=== PATIENT | female | born 1940 | race Caucasian/White ===

== ENCOUNTER → 2016-04-06 | Outpatient (CLI) | payer OTHER ==
--- NOTE | 2016-04-07 14:06 | DI ---
THYROID ULTRASOUND, 04/06/2016 11:32 AM Clinical History: Hyperthyroidism. Previous Exam: None. Scans are performed through both lobes of the thyroid gland in multiple projections with the high res olution linear array probe. Color Doppler ultrasound is also performed. Both lobes of the thyroid gland are of normal size. The right and left lobes measure 16 x 22 x 45 mm, and 13 x 14 x 38 mm, in the AP, transverse, and longitudinal dimensions, respectively. The ninth sma ll follicular cysts and small benign hyperplastic nodules are noted bilaterally in these range in siz e between 2-5 mm. No abnormal nodules are identified. There is no hypervascularity. Reading: There are benign findings in both lobes of the thyroid gland. No hypervascularity is identified.
== END ==
LOC: US 11:27
PROVIDERS: ATTEND Internal Medicine
DX: E05.90 Thyrotoxicosis, unspecified without thyrotoxic crisis or storm (principal)
CPT/HCPCS: 76536

== ENCOUNTER 2017-03-12 08:00 | Inpatient (IN) ==
[2017-04-02] MEDS ORDERED: ceFAZolin Inj 2gm (Premix) 2 GM/50 ML BAG IV ONE (06:00)
[2017-04-02] MEDS ORDERED: Ketorolac Inj 30 MG, Morphine Inj 5 MG, BUPivacaine Inj 0.25% PF 150 MG SPLASH ONE ×3 (06:00)
[2017-04-02] MEDS ORDERED: Tranexamic Acid 1,000 MG in Sodium Chloride 0.9% 100 ML IV SCH (06:00)
[2017-04-02] MEDS ORDERED: Lactated Ringers 1,000 ML PRIMARY IV SCH (06:00)
[2017-04-02] MEDS ORDERED: BUPivacaine Liposome/PF (Exparel) Inj 20ml vial INFIL ONE ×2 (06:00→07:04)
[2017-04-02] MEDS ORDERED: LIDOCAINE W/ SODIUM BICARB 0.5 ML SYR SUBD ONE ×2 (06:00→06:03)
[2017-04-02] MEDS ORDERED: DEXTROSE IV ONE (06:03)
[2017-04-02] MEDS ORDERED: CEFAZOLIN IV ONE (06:03)
[2017-04-02 06:54] LABS: Hematocrit [HCT] 39.4 % (37.0-47.0); Hemoglobin [HGB] 13.3 g/dL (12.0-16.0); MEAN CORPUSCULAR HEMOGLOBIN 31.7 PG (27-31); MEAN CORPUSCULAR HGB CONC 33.8 g/dL (33-37); MEAN CORPUSCULAR VOLUME 93.8 FL (81-99); RED BLOOD COUNT 4.2 10^6/uL (4.20-5.40)
[2017-04-02] MEDS ORDERED: NORMAL SALINE 10 ML IVP ONE (07:01)
[2017-04-02] MEDS ORDERED: Sodium Chloride 0.9% 500 ML PRIMARY IV ONE (07:01)
[2017-04-02] MEDS ORDERED: BUPIVACAINE 0.5% W/EPI MPF -30 ML VIAL IV ONE (07:04)
[2017-04-02] MEDS ORDERED: Lactated Ringers 1,000 ML PRIMARY IV ONE ×2 (07:04→11:17)
[2017-04-02] MEDS ORDERED: DEXAMETHASONE PF 10 MG/1 ML VIAL IVP ONE (07:04)
[2017-04-02] MEDS ORDERED: BACITRACIN 50,000 UNIT VIAL IRRIG ONE (07:04)
[2017-04-02] MEDS ORDERED: Mepivacaine Inj 1.5% 450 MG/30 ML VIAL EPIDURAL ONE (07:05)
[2017-04-02] MEDS ORDERED: MIDAZOLAM 5 MG/1 ML IVP ONE (07:05)
[2017-04-02 07:09] LABS: BLOOD UREA NITROGEN 24 mg/dL (7-22); SERUM ALBUMIN 4.1 g/dL (3.5-4.8)
[2017-04-02 07:23] LABS: BILIRUBIN,URINE NEGATIVE (NEG); CLARITY,URINE CLEAR (CLEAR); COLOR,URINE YELLOW (Y); GLUCOSE, URINE (UA) NEGATIVE (NEG); OCCULT BLOOD,URINE NEGATIVE (NEG); PH,URINE 5.5 (5.0-8.5); PROTEIN,URINE NEGATIVE (NEG); UROBILINOGEN,URINE 0.2 EU/dL (0.2)
[2017-04-02 07:25] LABS: URINE SAMPLE TYPE CLEAN CATCH URINE
[2017-04-02] MEDS ORDERED: ROCURONIUM 10 MG/1 ML - 5 ML VIAL IVP ONE (07:28)
--- NOTE | 2017-04-02 07:56 | CRNA.PROCE ---
Nerve Block Documentation - - Safety Measures: Time Out Taken, Site Verified - - Type of Nerve Block Used: Right Femoral Nerve Block (Analgesic block for TKA Right) Position for Nerve Block: Supine Moniters Used During Block: EKG, SPO2, NIBP Oxygen Supplemented: Yes Sedation Used - Enter Amount in Comment Field [ANES.SEDAT]: Midazolam (mg): Yes (Total of 4), Fentanyl (mcg): Yes (50 mcgs) Skin Prep Used: ChloroPrep (Twice) Draped: No Technique: Nerve Stimulator Nerve Block Needle Used: CartCrunch 50 mm Stimulation Hz: 2 Stimulation Staring mA: 1.8 Stimulation Ending mA: 0.48 Local Anesthetic - Enter Amt in Comment Field [ANES.LOCNB]: 0.5 % Bupivicaine with Epinephrine 1:200,000 (mL): Yes (10 ml), Other Anesthetic: Yes (1.5% Mepivicaine 10 ml) Additives to Nerve Blocks: Dexamethasone (mg): Yes (5 ) - - PreOp Block : Time In: 07:40 PreOp Block : Time Out: 07:53 Anesthesia Time - Other Weight: 87.543 kg Height: 5 ft 5 in Body Mass Index (BMI): 32.1
[2017-04-02] MEDS ORDERED: PROPOFOL 10 MG/1 ML (200 MG/20 ML) VIAL IV ONE (08:09)
[2017-04-02] MEDS ORDERED: ePHEDrine Inj 50 MG/ML AMP IVP ONE (08:19)
[2017-04-02] MEDS ORDERED: TRANEXAMIC ACID 1,000 MG / 10 ML VIAL IRRIG ONE (08:23)
[2017-04-02] MEDS ORDERED: Hetastarch 6% + NS 500 ML IV ONE (08:24)
[2017-04-02] MEDS ORDERED: HYDROmorphone 2 MG/1 ML IVP ONE (08:56)
[2017-04-02] MEDS ORDERED: KETAMINE 100 MG/1 ML - 5 ML IV ONE (08:56)
[2017-04-02] MEDS ORDERED: fentaNYL Inj 100 MCG/2 ML VIAL IVP ONE (08:59)
--- NOTE | 2017-04-02 09:31 | CRNA.PROCE ---
Nerve Block Documentation - - Type of Nerve Block Used: Right Sciatic Nerve Block (Analgesic block for post TKA Right.) Position for Nerve Block: Lateral Moniters Used During Block: EKG, SPO2, NIBP Oxygen Supplemented: Yes Sedation Used - Enter Amount in Comment Field [ANES.SEDAT]: Midazolam (mg): Yes (4 mg), Fentanyl (mcg): Yes (50 mcgs) Skin Prep Used: ChloroPrep (Twice) Draped: No Technique: Nerve Stimulator Nerve Block Needle Used: 100 mm ProBlk II Stimulation Hz: 2 Stimulation Staring mA: 1.8 Stimulation Ending mA: 0.48 Local Anesthetic - Enter Amt in Comment Field [ANES.LOCNB]: 0.5 % Bupivicaine with Epinephrine 1:200,000 (mL): Yes (10ml), Other Anesthetic: Yes (1.5% 10 ml) Additives to Nerve Blocks: Dexamethasone (mg): Yes (5 mg) - - PreOp Block : Time In: 07:39 PreOp Block : Time Out: 07:53 Anesthesia Time - Block Time PreOp Block : Time In: 07:40 PreOp Block : Time Out: 07:53 - Other Weight: 87.543 kg Height: 5 ft 5 in Body Mass Index (BMI): 32.1
--- NOTE | 2017-04-02 09:36 | CRNA.PROGR ---
Anesthesia Recovery Phase I - Post Anesthesia Evaluation Patient's Condition on Arrival in Phase I: Stable Patient's Condition on Arrival in Phase II: Stable Pain Level: 1
--- NOTE | 2017-04-02 09:36 | CRNA.PROGR ---
Anesthesia Time - - Start date: 04/02/17 End date: 04/02/17 - Procedure/Recovery Time Anesthesia : Time In: 07:59 Anesthesia : Time Out: 12:03 Anesthesia : Total Time: 244 - Block Time PreOp Block : Time In: 07:39 PreOp Block : Time Out: 07:53 PreOp Block : Total Time: 14 - Total Anesthesia Time Total Anesthesia Time (minutes): 258 - Other Weight: 87.543 kg Height: 5 ft 5 in Body Mass Index (BMI): 32.1 Physical Status: P3 (Age greater than 70, ASCVD,HTN,) Anesthesia Type: General Anesthesia : ET (Primary with pain blocks secondary) PostOp Pain Management: Femoral (Single Injection)
--- NOTE | 2017-04-02 09:37 | CRNA.PROGR ---
Post Anesthesia Phase II - Post Anesthesia Phase II Patient Stable and Discharged To: Med/Surg Care Assumed By Surgeon: Demetrius Adams MD Temperature: 97.3 F Pulse Rate: 64 Respiratory Rate: 10 Blood Pressure: 122/68 Pulse Ox: 94 Total Iman Score at Discharge: 9 Post Anesthesia Discharge Criteria Met: Yes
[2017-04-02] MEDS ORDERED: BISACODYL 10 MG SUPPOSITORY RECTAL PRN (13:02)
[2017-04-02] MEDS ORDERED: LIDOCAINE HCL 2 % 10 ML JELLY URO-JECT TOPICAL PRN (13:02)
[2017-04-02] MEDS ORDERED: LINACLOTIDE PO PRN (13:02)
[2017-04-02] MEDS ORDERED: ONDANSETRON 4 MG/2 ML VIAL IVP PRN (13:02)
[2017-04-02] MEDS ORDERED: ACETAMINOPHEN 325 MG TABLET PO PRN (13:02)
[2017-04-02] MEDS ORDERED: BISACODYL 5 MG TABLET PO PRN (13:02)
[2017-04-02] MEDS ORDERED: AMITRIPTYLINE 25 MG TABLET PO PRN (13:02)
[2017-04-02] MEDS ORDERED: MAG HYDROX/AL HYDROX/SIMETH 30 ML SUSP PO PRN (13:02)
[2017-04-02] MEDS ORDERED: Ondansetron ODT Tab 8 MG TAB PO PRN (13:02)
[2017-04-02] MEDS ORDERED: Prochlorperazine Tab 10 MG TAB PO PRN (13:02)
[2017-04-02] MEDS ORDERED: diphenhydrAMINE 25 MG CAPSULE PO PRN (13:02)
--- NOTE | 2017-04-02 14:38 | DI ---
XR KNEE 1 OR 2 VWS,04/02/2017 11:44 AM: Clinical History: Total knee arthroplasty. Previous Exam: January 07, 2017 Findings: AP and lateral views of the right knee are obtained, and demonstrate postsurgical changes consistent with a right total knee arthroplasty. There is some subcutaneous free air noted. Overlying skin nadira are seen. There is soft tissue swelling. Impression: Status post right total knee arthroplasty.
[2017-04-02] MEDS: Lactated Ringers 1,000 ML PRIMARY IV SCH (14:53)
--- NOTE | 2017-04-02 15:46 | ORTHO.OP ---
- - -: See Dictated Operative Report Procedure Codes - Lower Extremity/Knee Procedures Primary Lower Extremity Procedure Code: 31586 : TKA (hayden walker assisted)
--- NOTE | 2017-04-02 16:05 | ORTHO.PROG ---
Last Taken Vital Signs: Vital Signs - Last Taken Temperature 97 F 04/02/17 14:30 Pulse Rate 73 04/02/17 14:30 Respiratory Rate 16 04/02/17 14:30 Blood Pressure 112/56 04/02/17 14:30 Pulse Ox 92 04/02/17 15:00 Subjective: Patient has no pain with the current time sciatic and femoral nerve block working Objective: Patient with absent sensory and motor in the lower extremities. Her dressing is a place with no active drainage. She has a superficial suction dressing in place with no active issues. Laboratory Results 04/02/17 04/02/17 04/02/17 Range/Units 06:30 06:30 06:30 WBC 7.08 (4.8-10.8) 10^3/uL RBC 4.20 (4.20-5.40) 10^6/uL Hgb 13.3 (12.0-16.0) g/dL Hct 39.4 (37.0-47.0) % MCV 93.8 (81-99) FL MCH 31.7 H (27-31) PG MCHC 33.8 (33-37) g/dL RDW Std Deviation 44.5 (39-50) fL RDW Coeff of Ashli 13.3 (11.5-14.5) % Plt Count 272 (140-350) 10*3/uL MPV 10.0 (7.4-12.2) FL Sodium 141 (135-145) meq/L Potassium 4.4 (3.8-5.2) meq/L Chloride 111 (98-112) meq/L Carbon Dioxide 20 L (23-33) meq/L Anion Gap 10 (5-20) BUN 24 H (7-22) mg/dL Creatinine 0.8 (0.50-1.20) mg/dL Estimated GFR Cluster Bore Operator BUN/Creatinine Ratio 30.00 H (6-20) Glucose 102 (78-110) mg/dL Calculated Osmolality 295.0 H (267-292) mOsm/kg Calcium 9.4 (8.7-10.7) mg/dL Total Bilirubin 1.0 (0.3-1.2) mg/dL AST 46 H (8-39) IU/L ALT 41 (9-52) IU/L Alkaline Phosphatase 117 (38-126) IU/L Total Protein 7.5 (6.1-8.0) g/dL Albumin 4.1 (3.5-4.8) g/dL Globulin 3.4 (2.50-4.10) g/dL Albumin/Globulin Ratio 1.20 L (1.3-2.0) mg/g Ur Collection Type Urine Color (Y) Urine Clarity (CLEAR) Urine pH (5.0-8.5) Ur Specific [place] (1.005-1.030) Urine Protein (NEG) mg/dl Urine Glucose (UA) (NEG) mg/dL Urine Ketones (NEG) Urine Occult Blood (NEG) Urine Nitrate (NEG) Urine Bilirubin (NEG) Urine Urobilinogen (0.2) EU/dL Ur Leukocyte Esterase (NEG) Blood Type O NEGATIVE Antibody Screen Negative Crossmatch See Detail 04/02/17 Range/Units 07:15 WBC (4.8-10.8) 10^3/uL RBC (4.20-5.40) 10^6/uL Hgb (12.0-16.0) g/dL Hct (37.0-47.0) % MCV (81-99) FL MCH (27-31) PG MCHC (33-37) g/dL RDW Std Deviation (39-50) fL RDW Coeff of Ashli (11.5-14.5) % Plt Count (140-350) 10*3/uL MPV (7.4-12.2) FL Sodium (135-145) meq/L Potassium (3.8-5.2) meq/L Chloride (98-112) meq/L Carbon Dioxide (23-33) meq/L Anion Gap (5-20) BUN (7-22) mg/dL Creatinine (0.50-1.20) mg/dL Estimated GFR BUN/Creatinine Ratio (6-20) Glucose (78-110) mg/dL Calculated Osmolality (267-292) mOsm/kg Calcium (8.7-10.7) mg/dL Total Bilirubin (0.3-1.2) mg/dL AST (8-39) IU/L ALT (9-52) IU/L Alkaline Phosphatase (38-126) IU/L Total Protein (6.1-8.0) g/dL Albumin (3.5-4.8) g/dL Globulin (2.50-4.10) g/dL Albumin/Globulin Ratio (1.3-2.0) mg/g Ur Collection Type Clean catch urine Urine Color Yellow (Y) Urine Clarity Clear (CLEAR) Urine pH 5.5 (5.0-8.5) Ur Specific [place] 1.010 (1.005-1.030) Urine Protein Negative (NEG) mg/dl Urine Glucose (UA) Negative (NEG) mg/dL Urine Ketones Negative (NEG) Urine Occult Blood Negative (NEG) Urine Nitrate Negative (NEG) Urine Bilirubin Negative (NEG) Urine Urobilinogen 0.2 (0.2) EU/dL Ur Leukocyte Esterase Negative (NEG) Blood Type Antibody Screen Crossmatch Vital Signs (24 hrs) Temp Pulse Pulse Resp BP BP Pulse Ox 04/02/17 15:00 92 04/02/17 14:30 97 F 73 16 112/56 95 04/02/17 14:00 97 F 76 16 114/63 96 04/02/17 13:45 97 F 73 17 113/56 95 04/02/17 13:33 97.3 F 64 10 L 122/68 94 04/02/17 13:31 97.1 F 70 12 107/59 96 04/02/17 13:15 97.4 F 75 16 117/63 95 04/02/17 12:50 98.0 F 77 13 124/65 93 04/02/17 12:40 98.7 F 78 13 121/65 94 04/02/17 12:30 98.8 F 78 12 120/59 94 04/02/17 12:20 98.8 F 79 11 L 122/60 93 04/02/17 12:15 98.5 F 81 14 120/61 93 04/02/17 12:10 98.5 F 80 14 118/75 93 04/02/17 12:05 99.5 F 83 14 113/60 93 04/02/17 11:59 99.5 F 83 12 121/27 92 04/02/17 06:35 97.3 F 64 10 L 122/68 94 Assessment: Right total knee replacement doing well Plan: Begin physical therapy tomorrow. Deep vein thromboses protocol with Lovenox beginning tomorrow morning. Ice elevation. Any mobilization for the first 72 hours with a knee immobilizer and strict nonweightbearing.
[2017-04-02] MEDS: ceFAZolin Inj 2gm (Premix) 2 GM/50 ML BAG IV SCH (19:03)
[2017-04-02] MEDS: HYDROcodone-APAP 10 MG-325 MG TABLET PO PRN (19:03)
--- NOTE | 2017-04-02 20:32 | CONSULT ---
Consult Note - Consult Consult Date: 04/02/17 Reason for Consult: PostOp Consulation : Ortho Requesting Physician: Dr. Adams Primary Care Provider: Trent Collins MD HPI - History of Present Illness Date of Service: 04/02/17 Time of Service: 16:30 Chief Complaint: Right knee pain History of Present Illness: This is a very pleasant 76-year-old female with a history of chronic knee and lower extremity pain, prior neck surgery, chronic osteoarthritis, anxiety, hypercholesterolemia, and valvular insufficiency, who presented today for right total knee replacement done by Dr. Adams. See his surgical notes regarding that procedure. Perioperatively, the patient does not have any symptoms of chest pain, shortness breath, nausea or vomiting. We are being asked to help address issues of hypercholesterolemia, valvular insufficiency, and other medical issues during the patient's hospital stay. She states that these of been fairly well-controlled. Her James arthritis again was terminal disease post multiple therapies including narcotics, anti-inflammatories, and other modalities. Overall, they failed. The patient does not have any nausea or vomiting post surgery either. She is starting to get some feeling back to her right leg. Past Medical History Medical History: 1. Osteoarthritis. 2. Hypertension. 3. Valvular insufficiencies. 4. Hypercholesterolemia. 5. Chronic pain syndrome status post neck surgeries. 6. Essential tremor. Surgical History: cervical fusion C2-C7 , Status post total knee replacement, Status post rotator cuff repair, Status post hysterectomy, Status post cholecystectomy, Status post laser cataract surgery Pertinent Family History: Significant for coronary artery disease in her mother. Past Social History: Does not smoke or drink. . Overall had 7 children a couple of whom have some health issues. Tobacco Use: Never Smoker In the Past 12 Months, Have Used or Abuse Any of the Following Substance: None Alcohol Use: None Review of Systems - Respiratory Respiratory: REPORTS: Negative System Review - Cardiovascular Cardiovascular: REPORTS: Negative System Review - Gastrointestinal Gastrointestinal / Abdominal: REPORTS: Negative System Review - Musculoskeletal Musculoskeletal: REPORTS: See HPI - Neurological Neurologic: REPORTS: Negative System Review Medication / Allergies Home Medications: Home Medications Medication Instructions Recorded Confirmed Type Cyclobenzaprine HCl 1 tab PO TID PRN #270 tab 02/21/04/02/17 History Amitriptyline HCl 3 tab PO QHS PRN #270 tab 09/12/16 04/02/17 History Nabumetone 1 tab PO BID #270 tab 09/12/16 04/02/17 Rx Omeprazole 1 cap PO BID #180 cap 09/12/16 04/02/17 Rx Potassium Chloride 1 cap PO BID #180 cap 09/12/16 04/02/17 Rx Pravastatin Sodium [Pravachol] 1 tab PO QHS #90 tab 09/12/16 04/02/17 Rx Propranolol HCl 1 tab PO BID #180 tab 09/12/16 04/02/17 Rx Spironolactone 1 tab PO BID #180 tab 09/12/16 04/02/17 Rx Linaclotide [Linzess] 1 tab PO DAILY PRN #30 cap 10/16/16 04/02/17 History Oxybutynin Chloride [Oxybutynin 1 tab PO QHS #90 tab 10/16/16 04/02/17 Rx Chloride Er] sertraline 100 mg tablet 100 mg PO QDAY #90 tab 01/14/17 04/02/17 Rx hydrocodone 10 mg-acetaminophen 1 tab PO QID #120 tab 01/30/17 04/02/17 Rx 325 mg tablet Allergies/Adverse Reactions: Allergies 3 Allergy/AdvReac Type Severity Reaction Status Date / Time No Known Drug Allergies Allergy NOT Verified 04/02/17 18:27 APPLICABLE PAIN CONTRACT AdvReac Unknown NOT Uncoded 04/02/17 18:27 APPLICABLE Exam - Vitals Vital Signs: Vital Signs Temperature 98.6 F Temperature Source Temporal Artery Scan Pulse Rate [Pulse Oximeter] 72 Pulse Rate 64 Respiratory Rate 20 Blood Pressure [Left Arm] 116/74 Blood Pressure 122/68 Pulse Ox 95 Oxygen Flow Rate 1 Oxygen Delivery Method Nasal Cannula Height 5 ft 5 in Weight 193 lb - General General Appearance: No Acute Distress, Cooperative - Head Head Exam: Normal Inspection, Normocephalic, Atraumatic - ENT ENT Exam: POSITIVE: Mucous Membranes Moist - Respiratory Respiratory Exam: POSITIVE: Clear to Auscultation - Bilaterally, Breathing Non Labored - Cardiovascular Cardiovascular Exam: POSITIVE: RRR, No Murmur, No Clicks, No Gallops, No Rubs, No JVD - GI/Abdominal GI/Abdominal Exam: POSITIVE: Normal Bowel Sounds, Non Tender, Non Distended, Soft - Rectal Rectal Exam: POSITIVE: Deferred - External Exam: POSITIVE: Deferred Exam: POSITIVE: Deferred - Extremities Additional Extremities Exam Details: Right knee is dressed. PT just entered the room as I was examining the patient to place a knee immobilizer. - Neurological Neurological Exam: POSITIVE: Alert, Oriented x 3, No Facial Droop, Speech Intact / Clear - Psychiatric Psychiatric Exam: POSITIVE: Normal Affect, Normal Mood Results - Labs CBC and BMP: 04/02/17 06:30 04/02/17 06:30 - EKG Data -: EKG Interpreted by Me Rate: Normal EKG Shows Normal: Sinus Rhythm - Imaging Status: Report Reviewed by Me (Knee x-ray shows status post arthroplasty) Assessment and Plan - Patient Problems (1) Chronic osteoarthritis Current Visit: Yes Status: Chronic Onset Date: 05/23/11 Code(s): M19.90 - Unspecified osteoarthritis, unspecified site (2) Chronic low back pain Current Visit: Yes Status: Chronic Onset Date: 12/18/12 Code(s): M54.5 - Low back pain; G89.29 - Other chronic pain Qualifiers: Back pain laterality: unspecified (3) Status post total knee replacement Current Visit: Yes Status: Resolved Onset Date: 02/12/05 (4) Mitral and tricuspid insufficiency Current Visit: Yes Status: Chronic (5) Gastroesophageal reflux disease Current Visit: Yes Status: Chronic Onset Date: 04/01/03 Qualifiers: Esophagitis presence: esophagitis presence not specified Qualified Code(s) : K21.9 - Gastro-esophageal reflux disease without esophagitis (6) Hyperlipidemia Current Visit: Yes Status: Chronic Qualifiers: Hyperlipidemia type: unspecified Qualified Code(s): E78.5 - Hyperlipidemia , unspecified (7) Benign familial tremor Current Visit: Yes Status: Chronic (8) Essential hypertension Current Visit: Yes Status: Chronic (9) Anxiety disorder Current Visit: Yes Status: Chronic Onset Date: 06/12/12 Code(s): F41.9 - Anxiety disorder, unspecified Qualifiers: Anxiety disorder type: unspecified anxiety disorder Qualified Code(s): F41.9 - Anxiety disorder, unspecified - Assessment / Plan Additional Assessment/Plan Details: Thus far, chronic medical issues seem stabilized, and I do not think we need to hold antihypertensives. Go ahead and resume those. Recommend 14 days total of DVT prophylaxis with knee replacement. I've noted that the patient will start Lovenox, prophylactic dose, tomorrow. Continue PT and OT. Pain control. The patient may very well need extended therapy be on the hospital stay. I recommend consideration for swing bed. Check labs in a.m. Thank you for this consult, will be the hospitalist service's pleasure to follow this patient's care during the hospital stay
[2017-04-02] MEDS: DOCUSATE 100 MG CAPSULE PO SCH (20:37)
[2017-04-02] MEDS: Spironolactone Tab 25 MG TAB PO SCH (20:38)
[2017-04-02] MEDS: Pravastatin 80mg Tab PO SCH (20:38)
[2017-04-02] MEDS: OMEPRAZOLE 20 MG CAPSULE PO SCH (20:38)
[2017-04-03] MEDS: CALCIUM CARBONATE 500 MG (TUMS) CHEWABLE TABLET PO PRN (00:03)
[2017-04-03] MEDS: HYDROcodone-APAP 10 MG-325 MG TABLET PO PRN ×5 (00:03→19:02)
[2017-04-03] MEDS: Lactated Ringers 1,000 ML PRIMARY IV SCH ×2 (01:13→12:30)
[2017-04-03] MEDS: ceFAZolin Inj 2gm (Premix) 2 GM/50 ML BAG IV SCH (03:34)
[2017-04-03 06:15] LABS: Hematocrit [HCT] 27.7 % (37.0-47.0); Hemoglobin [HGB] 9.1 g/dL (12.0-16.0); MEAN CORPUSCULAR HEMOGLOBIN 31.4 PG (27-31); MEAN CORPUSCULAR HGB CONC 32.9 g/dL (33-37); MEAN CORPUSCULAR VOLUME 95.5 FL (81-99); MEAN PLATELET VOLUME 10.6 FL (7.4-12.2); RED BLOOD COUNT 2.9 10^6/uL (4.20-5.40)
[2017-04-03 07:23] LABS: BLOOD UREA NITROGEN 17 mg/dL (7-22); BUN/CREATININE RATIO 28.33 (6-20)
[2017-04-03] MEDS: PROPRANOLOL ER 60 MG CAPSULE PO SCH ×2 (08:33→21:40)
[2017-04-03] MEDS: ENOXAPARIN SODIUM 30 MG/0.3 ML SYRINGE SUBCUT SCH ×2 (08:33→21:40)
[2017-04-03] MEDS: OMEPRAZOLE 20 MG CAPSULE PO SCH ×2 (08:33→21:40)
[2017-04-03] MEDS: Potassium Chloride Tab 10 MEQ TAB PO SCH (08:33)
[2017-04-03] MEDS: DOCUSATE 100 MG CAPSULE PO SCH ×2 (08:33→21:40)
[2017-04-03] MEDS: Spironolactone Tab 25 MG TAB PO SCH ×2 (08:33→21:40)
[2017-04-03] MEDS: Sertraline Tab 50 MG TAB PO SCH (08:33)
--- NOTE | 2017-04-03 09:30 | ORTHO.PROG ---
Last Taken Vital Signs: Vital Signs - Last Taken Temperature 98.2 F 04/03/17 08:22 Pulse Rate 80 04/03/17 08:22 Respiratory Rate 16 04/03/17 08:22 Blood Pressure 142/68 04/03/17 08:22 Pulse Ox 95 04/03/17 08:22 Subjective: Patient with block wearing off and some increasing pain, controlled with oral and IV medication Objective: Intake and Output (24hr x 4 totals) 04/01/17 04/02/17 04/03/17 04/04/17 05:59 05:59 05:59 05:59 Intake Total 5362 / 5362 240 / 240 Output Total 2250 / 2250 Balance 3112 / 3112 240 / 240 Laboratory Results 04/03/17 04/03/17 Range/Units 04:41 04:41 WBC 8.45 (4.8-10.8) 10^3/uL RBC 2.90 L (4.20-5.40) 10^6/uL Hgb 9.1 L (12.0-16.0) g/dL Hct 27.7 L (37.0-47.0) % MCV 95.5 (81-99) FL MCH 31.4 H (27-31) PG MCHC 32.9 L (33-37) g/dL RDW Std Deviation 44.5 (39-50) fL RDW Coeff of Ashli 13.3 (11.5-14.5) % Plt Count 243 (140-350) 10*3/uL MPV 10.6 (7.4-12.2) FL Sodium 135 D (135-145) meq/L Potassium 4.1 (3.8-5.2) meq/L Chloride 111 (98-112) meq/L Carbon Dioxide 23 (23-33) meq/L Anion Gap 1 L (5-20) BUN 17 (7-22) mg/dL Creatinine 0.6 (0.50-1.20) mg/dL Estimated GFR Wig Sales Consultant BUN/Creatinine Ratio 28.33 H (6-20) Glucose 97 (78-110) mg/dL Calculated Osmolality 281.0 (267-292) mOsm/kg Calcium 8.1 L (8.7-10.7) mg/dL Vital Signs (Last 8 hours) Temp Pulse Resp BP Pulse Ox 04/03/17 08:22 98.2 F 80 16 142/68 95 04/03/17 04:39 94 04/03/17 04:35 98.5 F 71 20 109/56 94 Sensory and motor Lower extremity still absent, dressing/PREVENA in place and dry no calf pain Assessment: Right Total knee replacement Plan: DVT prophalaxis enoxaprin PT/OT, NWB right with knee immobilzer because of block Pain control
--- NOTE | 2017-04-03 10:01 | PTI REPORT ---
Thank you for the referral of Dorie Huber. She was seen on for an inpatient evaluation status post right total knee arthroplasty. SUBJECTIVE: The patient is a 76-year-old female. The patient reports she is starting to get minimal feeling in that right lower extremity but at this point hasn't had any complaints of uncontrolled pain, lightheadedness, or nausea. PAST MEDICAL HISTORY: Past medical history can be found in the patient's medical record. OBJECTIVE FINDINGS: Pain: The patient reported a pain level at its worst of 7/10 on the verbal analog scale (0=no pain, 10=worst pain) with movement. Incision: Her incision and leg was unable to be inspected due to the post op bandage. Bed mobility: The patient required mod to max assist x1 for bed mobility, specifically for the right lower extremity. The patient is able to sit up edge of bed unsupported for greater than 5 minutes without difficulty. Strength: Range of motion and strength were not formally tested due to just having surgery earlier this morning. The patient demonstrated the ability for a minimal quad contraction but was unable to lift her leg up. Transfers: The patient is able to perform a sit to stand transfer with verbal cues for proper hand placement with walker, gait belt, and knee immobilizer, non weight-bearing on the right lower extremity per Dr. Adams's protocol. Ambulation: We attempted to perform ambulatory activities; however, the patient was unable to tolerate non weight-bearing on the right lower extremity due to her past medical history of a cervical spine fusion as well as significant arthritis in bilateral shoulders. ASSESSMENT: Problem List: Pain in the right knee Decreased passive and active range of motion in the right knee Decreased strength in the right knee Short-Term Goals: To be met by discharge from inpatient: Patient will be able to transfer from bed to stand independently. Patient will be able to ambulate 100 feet with walker, weight-bearing as tolerated. Patient will be able to ascend and descend five stairs with walker, weight- bearing as tolerated. Long-Term Goals: To be met following discharge from inpatient: Patient will be seen by outpatient physical therapy. TREATMENT PLAN: Patient will be seen B.I.D during the week and one time per day over the weekend as an inpatient for strengthening and range of motion activities, manual therapy, and pain relief modalities as needed. Per Dr. Adams's protocol, the patient is to maintain non weight-bearing in the knee immobilizer for 72-hours before progressing with weight-bearing and gait activities. INITIAL TREATMENT: Treatment today consisted of the initial evaluation followed by verbal education to the patient as well as the hospitalist on Dr. Adams's protocols for non weight-bearing on the right lower extremity. The patient was issued a standard walker as well as a knee immobilizer which was fit for extension. The patient performed bed mobility from supine to edge of bed with max assist x1, specifically for the right lower extremity. She was able to sit unsupported in the seated position for greater than five minutes without any complaints of nausea or lightheadedness. She was able to perform a sit to stand transfer with verbal cues for proper hand placement and non weight- bearing on the right lower extremity. We attempted to perform gait training; however, the patient was unable to do this due to her past medical history of her neck surgery and arthritis in her shoulders. CARMEL
[2017-04-03] MEDS: HYDROmorphone 2 MG/1 ML IVP PRN (14:51)
[2017-04-03] MEDS: NORMAL SALINE 10 ML SYRINGE FLUSH IVP PRN (14:53)
--- NOTE | 2017-04-03 15:13 | PDOC(PROG) ---
Date and Time of Service: 04/03/2017, 1510 Interval History: No complains of chest pain, shortness breath, nausea or vomiting. No abdominal pain. Eating well. Has been up with therapy. Might be interested in a swing bed. Objective : Data - Labs CBC and BMP: 04/03/17 04:41 04/03/17 04:41 Objective : Exam - General General Appearance: No Acute Distress, Cooperative Additional General Exam Details: Vital Signs (24 hrs) Temp Pulse Resp BP Pulse Ox 04/03/17 12:00 98.5 F 74 18 117/62 99 04/03/17 08:22 98.2 F 80 16 142/68 95 04/03/17 04:39 94 04/03/17 04:35 98.5 F 71 20 109/56 94 04/03/17 00:18 98.3 F 65 20 135/70 95 04/02/17 20:04 98.6 F 72 20 116/74 95 04/02/17 16:10 97.1 F 71 17 114/57 94 - Eye Eye Exam: No Scleral Icterus - ENT ENT Exam: Mucous Membranes Moist - Respiratory Respiratory Exam: Clear to Auscultation - Bilaterally, Breathing Non Labored - Cardiovascular Cardiovascular Exam: RRR, No Murmur, No Clicks, No Gallops, No Rubs, No JVD - GI/Abdominal GI/Abdominal Exam: Normal Bowel Sounds, Non Tender, Non Distended, Soft - Extremities Extremities Exam: No Clubbing Present, No Edema Present, No Cyanosis Present - Neurological Neurological Exam: Alert, Oriented x 3, No Facial Droop, Speech Intact / Clear Assessment and Plan - Patient Problems (1) Mitral and tricuspid insufficiency Current Visit: Yes Status: Chronic (2) Chronic osteoarthritis Current Visit: Yes Status: Chronic Onset Date: 05/23/11 Code(s): M19.90 - Unspecified osteoarthritis, unspecified site (3) Chronic low back pain Current Visit: Yes Status: Chronic Onset Date: 12/18/12 Code(s): M54.5 - Low back pain; G89.29 - Other chronic pain Qualifiers: Back pain laterality: unspecified Sciatica presence: without sciatica Qualified Code(s): M54.5 - Low back pain; G89.29 - Other chronic pain (4) Status post total knee replacement Current Visit: Yes Status: Resolved Onset Date: 02/12/05 (5) Gastroesophageal reflux disease Current Visit: Yes Status: Chronic Onset Date: 04/01/03 Qualifiers: Esophagitis presence: esophagitis presence not specified Qualified Code(s) : K21.9 - Gastro-esophageal reflux disease without esophagitis (6) Hyperlipidemia Current Visit: Yes Status: Chronic Qualifiers: Hyperlipidemia type: unspecified Qualified Code(s): E78.5 - Hyperlipidemia , unspecified (7) Benign familial tremor Current Visit: Yes Status: Chronic (8) Essential hypertension Current Visit: Yes Status: Chronic (9) Anxiety disorder Current Visit: Yes Status: Chronic Onset Date: 06/12/12 Code(s): F41.9 - Anxiety disorder, unspecified Qualifiers: Anxiety disorder type: unspecified anxiety disorder Qualified Code(s): F41.9 - Anxiety disorder, unspecified - Assessment / Plan Additional Assessment/Plan Details: Thus far getting up with PT and OT. Tremor has not been an issue. Valvular insufficiencies have been reasonable during the hospital stay and no sign of fluid overload. Continue DVT prophylaxis. Swing bed evaluation. No need for transfusion. No change to medications for medical issues.
--- NOTE | 2017-04-03 16:07 | PT.PROG ---
Progress Note Progress Note: S. Patient stated that she is starting to get feeling back in her knee, She reports she does not want to sit in her chair this morning. O. Patient transferred to the edge of the bed where she performed seated long arc quads, heel toe raises with left leg x 10, sit to stands x10, Patient transferred back to supine and performed heel slides, quad sets and ankle pumps all x 10. Patient was left in bed with alarm and call light. A. Patient tolerated exercises fair, she is very hesitant to put weight through her shoulders to keep non weight bearing status, she agreed to sit up this afternoon, She would continue to benefit from skilled therapy at this time. P. Continue POC.
--- NOTE | 2017-04-03 16:16 | PT.PROG ---
Progress Note Progress Note: S. Patient stated that she is feeling better and she wants to get out of bed. O. Patient transferred to the edge of bed, then ambulated 15 feet to the bathroom and 10 feet back to chair, where she was left with alarm and call light. A. Patient tolerated ambulation fair, she was able to ambulate with Mod assist, She would continue to benefit from skilled therapy at this time. P. Continue POC.
[2017-04-03] MEDS: CYCLOBENZAPRINE 10 MG TABLET PO PRN (19:03)
[2017-04-03] MEDS: Pravastatin 80mg Tab PO SCH (21:40)
[2017-04-03] MEDS: Oxybutynin ER Tab 5 MG TAB PO SCH (21:40)
[2017-04-04] MEDS: HYDROcodone-APAP 10 MG-325 MG TABLET PO PRN ×3 (00:30→16:50)
[2017-04-04] MEDS: HYDROmorphone 2 MG/1 ML IVP PRN ×2 (00:30→07:25)
[2017-04-04 05:10] LABS: Hematocrit [HCT] 29.3 % (37.0-47.0); Hemoglobin [HGB] 9.4 g/dL (12.0-16.0); MEAN CORPUSCULAR HEMOGLOBIN 31.1 PG (27-31); MEAN CORPUSCULAR HGB CONC 32.1 g/dL (33-37); MEAN PLATELET VOLUME 10.3 FL (7.4-12.2); RED BLOOD COUNT 3.02 10^6/uL (4.20-5.40)
[2017-04-04 05:17] LABS: BLOOD UREA NITROGEN 15 mg/dL (7-22); BUN/CREATININE RATIO 21.42 (6-20)
[2017-04-04] MEDS: NORMAL SALINE 10 ML SYRINGE FLUSH IVP PRN (07:26)
[2017-04-04] MEDS: Sertraline Tab 50 MG TAB PO SCH (08:37)
[2017-04-04] MEDS: DOCUSATE 100 MG CAPSULE PO SCH ×2 (08:38→21:06)
[2017-04-04] MEDS: PROPRANOLOL ER 60 MG CAPSULE PO SCH ×2 (08:38→21:07)
[2017-04-04] MEDS: OMEPRAZOLE 20 MG CAPSULE PO SCH ×2 (08:38→21:06)
[2017-04-04] MEDS: Potassium Chloride Tab 10 MEQ TAB PO SCH (08:38)
[2017-04-04] MEDS: ENOXAPARIN SODIUM 30 MG/0.3 ML SYRINGE SUBCUT SCH ×2 (08:38→21:06)
[2017-04-04] MEDS: Spironolactone Tab 25 MG TAB PO SCH ×2 (08:38→21:07)
--- NOTE | 2017-04-04 15:58 | ORTHO.PROG ---
Last Taken Vital Signs: Vital Signs - Last Taken Temperature 98.2 F 04/04/17 13:00 Pulse Rate 76 04/04/17 13:00 Respiratory Rate 20 04/04/17 13:00 Blood Pressure 141/60 04/04/17 13:00 Pulse Ox 94 04/04/17 13:00 Subjective: Patient having a very difficult morning because of lack of sleep and pain unable to participate in therapy but able to participate this afternoon. Overall she feels she is doing better and ready to continue to move forward with rehabilitation. Objective: Examination shows that the patient has a dressing in place she has good extension of the ankle and toes good flexion sensory exam is intact good pulses and brisk refill. Or thigh pain. Laboratory Results 04/04/17 04/04/17 Range/Units 04:38 04:38 WBC 8.99 (4.8-10.8) 10^3/uL RBC 3.02 L (4.20-5.40) 10^6/uL Hgb 9.4 L (12.0-16.0) g/dL Hct 29.3 L (37.0-47.0) % MCV 97.0 (81-99) FL MCH 31.1 H (27-31) PG MCHC 32.1 L (33-37) g/dL RDW Std Deviation 45.5 (39-50) fL RDW Coeff of Ashli 13.5 (11.5-14.5) % Plt Count 229 (140-350) 10*3/uL MPV 10.3 (7.4-12.2) FL Sodium 138 (135-145) meq/L Potassium 4.3 (3.8-5.2) meq/L Chloride 106 (98-112) meq/L Carbon Dioxide 24 (23-33) meq/L Anion Gap 8 (5-20) BUN 15 (7-22) mg/dL Creatinine 0.7 (0.50-1.20) mg/dL BUN/Creatinine Ratio 21.42 H (6-20) Glucose 105 (78-110) mg/dL Calculated Osmolality 286.0 (267-292) mOsm/kg Calcium 8.7 (8.7-10.7) mg/dL Vital Signs (24 hrs) Temp Pulse Resp BP Pulse Ox 04/04/17 13:00 98.2 F 76 20 141/60 94 04/04/17 08:41 97.6 F 86 20 128/59 92 04/04/17 04:29 98.6 F 75 21 125/60 92 04/04/17 04:22 92 04/04/17 00:09 98.6 F 71 18 122/59 97 04/03/17 19:47 98.0 F 68 16 127/57 94 04/03/17 19:00 68 16 04/03/17 16:51 98.6 F 68 16 124/60 95 Assessment: Right total knee replacement overall doing well Plan: At the current time patient to do doing much better we seemed to have reasonable pain control we will continue with trying to allow the patient to get more rest keeping her door shot and trying to alleviate unnecessary wakeup events. We will continue with deep vein thromboses protocol with pneumatic sequential devices and her Lovenox. We'll continue with physical therapy and occupational therapy.
--- NOTE | 2017-04-04 16:57 | PDOC(PROG) ---
Date and Time of Service: 04/04/2017, 1653 Interval History: Saw patient earlier today. Discussed with orthopedics. No complaints of chest pain, shortness breath, nausea or vomiting. Would like something for constipation. States that she has not been sleeping very well and she wanted to do some resting this afternoon before trying therapy again. Objective : Data - Labs CBC and BMP: 04/04/17 04:38 04/04/17 04:38 Objective : Exam - General General Appearance: No Acute Distress, Cooperative Additional General Exam Details: Vital Signs - Last Taken Temperature 97.8 F 04/04/17 16:31 Pulse Rate 71 04/04/17 16:31 Respiratory Rate 20 04/04/17 16:31 Blood Pressure 116/56 04/04/17 16:31 Pulse Ox 90 04/04/17 16:31 - Eye Eye Exam: No Scleral Icterus - ENT ENT Exam: Mucous Membranes Moist - Respiratory Respiratory Exam: Clear to Auscultation - Bilaterally, Breathing Non Labored - Cardiovascular Cardiovascular Exam: RRR, No Clicks, No Gallops, No Rubs, Systolic Murmur, No JVD - GI/Abdominal GI/Abdominal Exam: Normal Bowel Sounds, Non Tender, Non Distended, Soft - Extremities Extremities Exam: No Clubbing Present, No Edema Present, No Cyanosis Present Additional Extremities Exam Details: Lower extremity is dressed, dressing is clean, dry, intact. - Neurological Neurological Exam: Alert, Oriented x 3, No Facial Droop, Speech Intact / Clear Assessment and Plan - Patient Problems (1) Mitral and tricuspid insufficiency Current Visit: Yes Status: Chronic (2) Chronic osteoarthritis Current Visit: Yes Status: Chronic Onset Date: 05/23/11 Code(s): M19.90 - Unspecified osteoarthritis, unspecified site (3) Chronic low back pain Current Visit: Yes Status: Chronic Onset Date: 12/18/12 Code(s): M54.5 - Low back pain; G89.29 - Other chronic pain Qualifiers: Back pain laterality: unspecified Sciatica presence: without sciatica Qualified Code(s): M54.5 - Low back pain; G89.29 - Other chronic pain (4) Status post total knee replacement Current Visit: Yes Status: Resolved Onset Date: 02/12/05 (5) Gastroesophageal reflux disease Current Visit: Yes Status: Chronic Onset Date: 04/01/03 Qualifiers: Esophagitis presence: esophagitis presence not specified Qualified Code(s) : K21.9 - Gastro-esophageal reflux disease without esophagitis (6) Hyperlipidemia Current Visit: Yes Status: Chronic Qualifiers: Hyperlipidemia type: unspecified Qualified Code(s): E78.5 - Hyperlipidemia , unspecified (7) Benign familial tremor Current Visit: Yes Status: Chronic (8) Essential hypertension Current Visit: Yes Status: Chronic (9) Anxiety disorder Current Visit: Yes Status: Chronic Onset Date: 06/12/12 Code(s): F41.9 - Anxiety disorder, unspecified Qualifiers: Anxiety disorder type: unspecified anxiety disorder Qualified Code(s): F41.9 - Anxiety disorder, unspecified - Assessment / Plan Additional Assessment/Plan Details: Murmur is a little bit more prominent on exam today, but anemia is not so profound that the patient requires transfusion. No changes there. For insomnia issues she takes melatonin at home, I told her to bring in her own melatonin for home use. Trial Tylenol and Benadryl tonight to see if that helps with the patient's sleep. Right for medications for constipation. PT and OT. DVT prophylaxis.
[2017-04-04] MEDS ORDERED: BISACODYL 5 MG TABLET PO ONE (17:06)
--- NOTE | 2017-04-04 17:09 | PT.PROG ---
Progress Note Progress Note: S. Patient agreed to go to the therapy gym this afternoon, she reported that she had a bad morning and that was why she refused earlier. O. Patient ambulated 10 feet to the wheelchair and was wheeled to the therapy gym where she had heat and performed supine exercises in the form of; quad sets , ankle pumps, heel slides, short arc quads, straight leg raises (with assist), seated long arc quads all x 10, sit to stands x 5 then ambulated approximately 20 feet then was left with OT for further therapy. A. Patient tolerated therapy fair, she struggles with non weight bearing status , however is able to perform quad sets and short arc quads independently, she required min assist with straight leg raises and would continue to benefit from skilled therapy to increase strength and mobility. P. Continue POC.
[2017-04-04] MEDS ORDERED: diphenhydrAMINE 25 MG CAPSULE PO ONE (21:00)
[2017-04-04] MEDS ORDERED: ACETAMINOPHEN 325 MG TABLET PO SCH (21:00)
[2017-04-04] MEDS: Pravastatin 80mg Tab PO SCH (21:07)
[2017-04-04] MEDS: CYCLOBENZAPRINE 10 MG TABLET PO PRN (21:07)
[2017-04-04] MEDS: Oxybutynin ER Tab 5 MG TAB PO SCH (21:07)
[2017-04-05] MEDS: HYDROcodone-APAP 10 MG-325 MG TABLET PO PRN ×4 (04:03→19:10)
[2017-04-05 05:24] LABS: Hemoglobin [HGB] 9.8 g/dL (12.0-16.0); MEAN CORPUSCULAR HEMOGLOBIN 31.7 PG (27-31); MEAN CORPUSCULAR HGB CONC 32.7 g/dL (33-37); MEAN CORPUSCULAR VOLUME 97.1 FL (81-99); MEAN PLATELET VOLUME 10.5 FL (7.4-12.2); RED BLOOD COUNT 3.09 10^6/uL (4.20-5.40)
[2017-04-05 05:32] LABS: BLOOD UREA NITROGEN 14 mg/dL (7-22)
[2017-04-05] MEDS: Spironolactone Tab 25 MG TAB PO SCH ×2 (08:43→20:06)
[2017-04-05] MEDS: DOCUSATE 100 MG CAPSULE PO SCH ×2 (08:44→20:06)
[2017-04-05] MEDS: OMEPRAZOLE 20 MG CAPSULE PO SCH ×2 (08:44→20:06)
[2017-04-05] MEDS: Sertraline Tab 50 MG TAB PO SCH (08:44)
[2017-04-05] MEDS: Potassium Chloride Tab 10 MEQ TAB PO SCH (08:44)
[2017-04-05] MEDS: ENOXAPARIN SODIUM 30 MG/0.3 ML SYRINGE SUBCUT SCH ×2 (08:44→20:06)
[2017-04-05] MEDS: PROPRANOLOL ER 60 MG CAPSULE PO SCH ×2 (08:44→20:07)
--- NOTE | 2017-04-05 08:49 | ORTHO.PROG ---
Last Taken Vital Signs: Vital Signs - Last Taken Temperature 98.3 F 04/05/17 04:23 Pulse Rate 84 04/05/17 04:23 Respiratory Rate 20 04/05/17 04:23 Blood Pressure 129/57 04/05/17 04:23 Pulse Ox 96 04/05/17 04:23 Subjective: Patient doing relatively well notes that she feels like she is making progress. Objective: Immobilizer was removed she has good motor with extension of the leg near full extension can flex to about 50. Generally appears to have good ligamentous stability good motor and sensory of the lower extremity foot and ankle.PREVENA dressing is in place with no drainage. Laboratory Results 04/05/17 04/05/17 Range/Units 04:25 04:25 WBC 8.96 (4.8-10.8) 10^3/uL RBC 3.09 L (4.20-5.40) 10^6/uL Hgb 9.8 L (12.0-16.0) g/dL Hct 30.0 L (37.0-47.0) % MCV 97.1 (81-99) FL MCH 31.7 H (27-31) PG MCHC 32.7 L (33-37) g/dL RDW Std Deviation 44.9 (39-50) fL RDW Coeff of Ashli 13.3 (11.5-14.5) % Plt Count 231 (140-350) 10*3/uL MPV 10.5 (7.4-12.2) FL Sodium 137 (135-145) meq/L Potassium 4.0 (3.8-5.2) meq/L Chloride 103 (98-112) meq/L Carbon Dioxide 23 (23-33) meq/L Anion Gap 11 (5-20) BUN 14 (7-22) mg/dL Creatinine 0.7 (0.50-1.20) mg/dL BUN/Creatinine Ratio 20.00 (6-20) Glucose 95 (78-110) mg/dL Calculated Osmolality 284.0 (267-292) mOsm/kg Calcium 8.8 (8.7-10.7) mg/dL Vital Signs (24 hrs) Temp Pulse Resp BP Pulse Ox 04/05/17 04:23 98.3 F 84 20 129/57 96 04/05/17 04:02 96 04/05/17 01:00 98.7 F 93 20 137/77 91 04/04/17 20:23 98.5 F 70 20 123/54 91 04/04/17 16:31 97.8 F 71 20 116/56 90 04/04/17 13:00 98.2 F 76 20 141/60 94 Assessment: Right total knee replacement overall doing well making slow progress with physical therapy and occupational therapy Plan: Patient will continue with physical therapy and occupational therapy. I suspect she will need continued her rehabilitation possibly on swing bed if this is an available option. Continue with current pain control and DVT prophylaxis with Lovenox and pneumatic sequential devices.
--- NOTE | 2017-04-05 11:12 | OT.PROG ---
Progress Note Progress Note: Occupational Therapy: 30 min S: pt stated she was feeling okay and was willing to go to therapy. O: pt completed doffiing and donning of new gown with MIN A for set up. pt competed functional ambulation with FWW and CGA for safety from chair to w/c x10 '. pt completed functional transfer from w/c to toilet with CGA for safety with MIN A for balance and coordination. pt competed all ADL tasks associated with toileting Mary. pt completed 2# BUE exercises of biceps curls x10, chest press x10. pt completed YTB exercises of shoulder flexion x10, triceps extension x10, biceps curls x10, chest pulls x10. pt completed functional transfer from mat table to w/c with 2 person transfer and CGA for safety due to weakness from therapy session. pt completed functional transfer from w/c to bed with CGA for safety. pt needed MOD A to lift legs onto bed. A: pt need verbal encouragement before agreeing to therapy today. once pt was in therapy gym pt became and active participant in therapy sessions. P: continue POC
--- NOTE | 2017-04-05 11:34 | OTI REPORT ---
Thank you for the referral of Dorie Huber. She was seen on for an occupational therapy inpatient evaluation status post right total knee arthroplasty. SUBJECTIVE: The patient is a 76-year-old female who is being seen secondary to having a right total knee arthroplasty. Prior to admission the patient lived in her own home with her . She was independent with all activities of daily living and functional activities. The patient is still non weight-bearing with her knee immobilizer. The patient reports that she does have a higher toilet and a shower chair at home. PAST MEDICAL HISTORY: Past medical history can be found in the patient's medical record. OBJECTIVE FINDINGS: Transfers: The patient requires max assist with functional transfers. Activities of daily living: The patient was issued a travel registered nurse nicu, sock aide, bath sponge, and a long handled shoe horn for increased independence. She said she will need all of these for dressing activities as even prior to admission she had difficulty dressing herself. The patient and her were instructed to remove all throw rugs within their home. Bed mobility: The patient requires max assist for bed mobility. Pain: The patient has a lot of shoulder pain. Range of motion: The patient has upper extremity range of motion that is within functional limits. Strength: Upper extremity strength is 3+/5 for flexion, 4/5 for extension, 3+/5 for triceps, and 3+/5 for abduction. Elbow flexion/extension is 4/5 and wrist flexion/extension is 3+/5. ASSESSMENT: At this time the patient would benefit from skilled occupational therapy Problem List: Decreased ability to perform ADLs Patient will require education on use of adaptive equipment Decreased upper extremity strength Decreased ability to perform functional transfers Short-Term Goals: To be met by discharge from inpatient: Patient will be able to dress self independently with use of adaptive equipment. Patient will increase upper extremity strength to 4+/5 in order to use upper extremities for longer periods of time with her walker. Patient will be able to complete toilet transfer independently. Patient will be able to complete a shower independently. Long-Term Goals: To be met following discharge from inpatient: Patient will return home, demonstrating independence and safety with all ADLs and functional tasks. TREATMENT PLAN: Patient will be seen B.I.D during the week and one time per day over the weekend as an inpatient to address the above goals and objectives. INITIAL TREATMENT: Treatment today consisted of the initial evaluation followed by the patient transferring from supine to sit with max assist. The patient required max assist for dressing activities. The patient did not necessarily want to participate with therapy, but she did state she needed all of the adaptive equipment as she did have trouble dressing herself. The patient was placed back in bed with air pumps on calves. CARMEL
--- NOTE | 2017-04-05 12:02 | OT PM DAY ---
Diagnosis : Right Total Knee Arthroplasty PM - Occupational Therapy S: The patient reports she is willing to work on upper extremity strengthening exercises. She also states she needs to use the restroom. O: Treatment today consisted of therapeutic exercises including red theraband resisted horizontal abduction, biceps curls, internal/external rotation, triceps, shoulder extension, horizontal adduction, and shoulder adduction x10 repetitions each. The patient was able to complete a toilet transfer with max assist and verbal cues for turning. The patient required max assist for toilet hygiene. The patient demonstrated some bowel incontinence today and it was also observed that she had a slight blister wound on her left buttocks. The patient ambulated to the wheelchair with mod assist and verbal cues. The patient then transferred into bed with mod assist. OT spoke to the nurse about the patient's wound on her left buttocks and they did put some cream on it. The patient's knee immobilizer was removed and her compression stockings were placed on her calves. The patient was left in bed with call light in place. A: The patient tolerated today's treatment well. P: Continue seeing patient BID during the week and one time per day over the weekend for upper extremity strengthening, ADLs, and overall functional mobility. MTDD
--- NOTE | 2017-04-05 12:44 | PDOC(PROG) ---
Date and Time of Service: 04/05/2017 12:42 PM Interval History: Subjective Patient rating her knee pain about the 5 out of 10. No other symptoms. No chest pain, no shortness of breath. Objective : Data - Labs CBC and BMP: 04/05/17 04:25 04/05/17 04:25 Objective : Exam - General General Appearance: No Acute Distress, Cooperative - Head Head Exam: Normal Inspection, Atraumatic - Eye Eye Exam: Normal Appearance - ENT ENT Exam: Normal Exam - Neck Neck Exam: Normal Inspection - Respiratory Respiratory Exam: Clear to Auscultation - Bilaterally - Cardiovascular Cardiovascular Exam: RRR - GI/Abdominal GI/Abdominal Exam: Normal Bowel Sounds, Non Tender, Non Distended, Soft, No Organomegaly - Rectal Rectal Exam: Deferred - External Exam: Deferred - Extremities Additional Extremities Exam Details: No edema. Dressing applied to right knee. - Back Back Exam: Normal Inspection - Neurological Neurological Exam: Alert, Oriented x 3, CN II-XII Intact, Speech Intact / Clear , Moves All Extremities Equally - Psychiatric Psychiatric Exam: Normal Affect Assessment and Plan - Patient Problems (1) Essential hypertension Current Visit: Yes Status: Chronic Comment: Same medications. (2) Benign familial tremor Current Visit: Yes Status: Chronic Comment: She is on propranolol continue. (3) Hyperlipidemia Current Visit: Yes Status: Chronic Comment: Same medications Qualifiers: Hyperlipidemia type: unspecified Qualified Code(s): E78.5 - Hyperlipidemia , unspecified (4) Gastroesophageal reflux disease Current Visit: Yes Status: Chronic Onset Date: 04/01/03 Comment: Same med Qualifiers: Esophagitis presence: esophagitis presence not specified Qualified Code(s) : K21.9 - Gastro-esophageal reflux disease without esophagitis (5) Status post total knee replacement Current Visit: Yes Status: Resolved Onset Date: 02/12/05 Comment: Continue PT and OT. For DVT prophylaxis she is on Lovenox. (6) Postoperative anemia due to acute blood loss Current Visit: Yes Status: Acute Comment: Hemoglobin is stable. Will watch. Code(s): D62 - Acute posthemorrhagic anemia
--- NOTE | 2017-04-05 16:20 | OT.PROG ---
Progress Note Progress Note: S: Pt. reports that her pain has decreased from this morning and she is willing to participate in therapy session. O: Pt. was seen from 1500 to 1520 for skilled occupational therapy session. Pt. completed toileting task with SBA for transfer, set-up assist for toilet hygiene , and independence with pants management. Pt. demonstrated the ability to complete functional transfers X 2 with SBA for safety while following precautions. Pt. then completed the following UE strengthening: red digi flex X 10, 3# dowel chest press 2 X 10, 3# dowel horizontal abduction 2 X 10, 3# shoulder flexion 2 X 10, RTB biceps curls 2 X 10, RTB triceps 2 X 10, RTB horizontal abduction X 10, RTB scapular squeezes X 10, and RTB shoulder extension X 10. Following occupational therapy session, pt. transitioned to PT. A: Pt. tolerated UE strengthening fair today. She required verbal cues to continue with UE strengthening. P: Continue POC. RUPERT Santana
--- NOTE | 2017-04-05 16:25 | PT.PROG ---
Progress Note Progress Note: S. Patient stated that she is having pain in her knee this morning, She agreed to go to the therapy gym. O. Patient ambulated approximately 10 feet to the wheelchair and was wheeled to the therapy gym where she had heat and performed supine exercises in the form of ; heel slides, quad sets, glute sets, ankle pumps, short arc quads, seated long arc quads, heel toe raises, knee flexion with 10 second holds all x 10. Patient performed standing weight shifts and sit to stands x 5. Patient ambulated approximately 15 feet to the wheelchair and was returned to her room where she was left in her chair with alarm and call light. A. Patient tolerated therapy fair, she continues to struggle with pain and quad insufficiency, she requires mod assist with transfers and ambulation. She would continue to benefit from skilled therapy at this time. P. Continue POC.
--- NOTE | 2017-04-05 17:55 | PT.PROG ---
Progress Note Progress Note: S. Patient stated that she is feeling a little better this afternoon. She reports that her knee doesn't hurt as bad as it did this morning. O. Patient ambulated 10 feet to the wheelchair and was wheeled to the therapy gym where she had heat and performed supine exercises in the form of; quad sets , ankle pumps, heel slides, short arc quads, straight leg raises (with assist), seated long arc quads all x 10, sit to stands x 10 standing weight sifts, then ambulated approximately 20 feet. Patient was wheeled back to her room where she was left in her chair with alarm. A. Patient tolerated therapy fair, she was able to perform weight shifts however she was very hesitant to ambulate with weight on her knee. She would continue to benefit from skilled therapy at this time. P. Continue POC.
[2017-04-05] MEDS: CALCIUM CARBONATE 500 MG (TUMS) CHEWABLE TABLET PO PRN (18:27)
[2017-04-05] MEDS: CYCLOBENZAPRINE 10 MG TABLET PO PRN (20:06)
[2017-04-05] MEDS: Pravastatin 80mg Tab PO SCH (20:06)
[2017-04-05] MEDS: Oxybutynin ER Tab 5 MG TAB PO SCH (20:07)
[2017-04-06] MEDS: HYDROcodone-APAP 10 MG-325 MG TABLET PO PRN ×3 (02:25→09:46)
[2017-04-06] MEDS: CYCLOBENZAPRINE 10 MG TABLET PO PRN (02:26)
--- NOTE | 2017-04-06 08:11 | DCSUMMARY ---
Hospitalization Summary Admit Date: 04/02/2017 Discharge Date: 04/06/17 Hospital Course: Discharge diagnoses 1. Status post the right knee replacement for osteoarthritis 2. Hypertension 3. History of valvular insufficiencies 4. Hypercholesterolemia 5. History of chronic pain syndrome is most neck surgeries 6. Essential tremor 7. Anemia secondary to postoperative blood loss Hospital course This is a 76 years old the female with medical history significant for history of osteoarthritis, hypertension, essential tremor, chronic pain syndrome and hypercholesterolemia who came into the hospital to have right total knee replacement and was done by Dr. Adams. The hospitalist service were consulted for management of medical issues. She was seen by Dr. Sanchez please see his note. We continued with the rest of her medications. She was put on Lovenox for DVT prophylaxis. Postoperatively she started PT and OT and we continued with it. She remained weak and it was thought that probably she need a longer period of time on swing bed before she would be able to go back home. I saw her later on during hospital stay we continued with physical therapy she remained weak and we decided to switch her to swing bed. I think at one point she need the a formal cognitive evaluation as we did notice some memory issues while she is here. She did have some mild anemia postoperatively probably secondary to postoperative blood loss but she didn't need blood transfusion. Discharge instruction Diet regular Activity as started Medications Active Medications Acetaminophen (Tylenol) 325 - 650 mg PO Q4H PRN PRN Reason: pain or fever Last Admin: 04/05/17 13:41 Dose: 325 mg Hydrocodone Bitart/Acetaminophen (Ennis 10/325 Tab) 1 - 2 tab PO Q4H PRN PRN Reason: Pain Last Admin: 04/06/17 05:56 Dose: 2 tab Al Hydroxide/Mg Hydroxide (Mylanta Liquid) 10 - 20 ml PO Q6H PRN PRN Reason: Indigestion Amitriptyline HCl (Amitriptyline Hcl) 75 mg PO BEDTIME PRN PRN Reason: Spasms Bisacodyl (Dulcolax Tab) 5 mg PO BID PRN PRN Reason: Constipation Last Admin: 04/03/17 21:40 Dose: 5 mg Bisacodyl (Bisac-Evac Supp) 10 mg RECTAL ONCE PRN PRN Reason: Constipation Calcium Carbonate (Tums) 1 - 2 tab PO Q4H PRN PRN Reason: Indigestion Last Admin: 04/05/17 18:27 Dose: 2 tab Cyclobenzaprine HCl (Flexeril) 5 mg PO TID PRN PRN Reason: Spasms Last Admin: 04/06/17 02:26 Dose: 5 mg Diphenhydramine HCl (Benadryl) 25 - 50 mg PO Q4H PRN PRN Reason: Itching Docusate Sodium (Colace) 100 mg PO BID [facility] Last Admin: 04/05/17 20:06 Dose: 100 mg Enoxaparin Sodium (Lovenox Inj) 30 mg SUBCUT BID [facility] Last Admin: 04/05/17 20:06 Dose: 30 mg Hydromorphone HCl (Dilaudid Inj) 1 mg IVP Q1H PRN PRN Reason: Moderate to Severe Pain Last Admin: 04/04/17 07:25 Dose: 1 mg Lidocaine HCl (Xylocaine Uro-Ject 2%) 10 ml TOPICAL ONCE PRN PRN Reason: Discomfort catheter insertion Omeprazole (Prilosec) 20 mg PO BID [facility] Last Admin: 04/05/17 20:06 Dose: 20 mg Ondansetron HCl (Zofran Inj) 4 mg IVP Q4H PRN PRN Reason: NAUSEA / VOMITING Last Admin: 04/04/17 07:25 Dose: 4 mg Ondansetron HCl (Zofran Odt) 8 mg PO Q6H PRN PRN Reason: NAUSEA Oxybutynin Chloride (Ditropan Xl) 15 mg PO BEDTIME [facility] Last Admin: 04/05/17 20:07 Dose: 15 mg Potassium Chloride (Klor-Con) 10 meq PO DAILY [facility] Last Admin: 04/05/17 08:44 Dose: 10 meq Pravastatin Sodium (Pravachol) 80 mg PO BEDTIME [facility] Last Admin: 04/05/17 20:06 Dose: 80 mg Prochlorperazine Maleate (Compazine) 10 mg PO Q6H PRN PRN Reason: NAUSEA Propranolol HCl (Inderal La) 60 mg PO BID [facility] Last Admin: 04/05/17 20:07 Dose: 60 mg Sertraline HCl (Zoloft) 100 mg PO DAILY [facility] Last Admin: 04/05/17 08:44 Dose: 100 mg Sodium Chloride (Saline Flush) 5 - 20 ml IVP BID PRN PRN Reason: Flush Last Admin: 04/04/17 07:26 Dose: 20 ml Spironolactone (Aldactone) 25 mg PO BID [facility] Last Admin: 04/05/17 20:06 Dose: 25 mg Follow-up patient status will be changed to swing bed status to continue physical therapy. Exam - Vitals Vital Signs: Vital Signs Temperature 98.4 F Temperature Source Temporal Artery Scan Pulse Rate [Apical] 76 Pulse Rate [Pulse Oximeter] 76 Pulse Rate 64 Respiratory Rate 16 Blood Pressure [Left Arm] 111/92 Blood Pressure 122/68 Pulse Ox 94 Oxygen Flow Rate 1 Oxygen Delivery Method Room Air Height 5 ft 5 in Weight 202 lb 8 oz - General General Appearance: No Acute Distress, Cooperative, Obese - Head Head Exam: Normal Inspection, Atraumatic - Eye Eye Exam: POSITIVE: Normal Appearance - ENT ENT Exam: POSITIVE: Normal Exam - Neck Neck Exam: Normal Inspection - Respiratory Respiratory Exam: POSITIVE: Clear to Auscultation - Bilaterally - Cardiovascular Cardiovascular Exam: POSITIVE: RRR - GI/Abdominal GI/Abdominal Exam: POSITIVE: Normal Bowel Sounds, Non Tender, Non Distended, Soft, No Organomegaly - Rectal Rectal Exam: POSITIVE: Deferred - External Exam: POSITIVE: Deferred - Extremities Additional Extremities Exam Details: Dressing applied to the right knee. Drain in place. - Back Back Exam: POSITIVE: Normal Inspection - Neurological Neurological Exam: POSITIVE: Alert, Oriented x 3, CN II-XII Intact, Moves All Extremities Equally - Psychiatric Psychiatric Exam: POSITIVE: Normal Affect Patient Problems - Patient Problem List (1) Essential hypertension Current Visit: Yes Status: Chronic Category: Medical (2) Benign familial tremor Current Visit: Yes Status: Chronic Category: Medical (3) Hyperlipidemia Current Visit: Yes Status: Chronic Qualifiers: Hyperlipidemia type: unspecified Qualified Code(s): E78.5 - Hyperlipidemia , unspecified Category: Medical (4) Gastroesophageal reflux disease Current Visit: Yes Status: Chronic Onset Date: 04/01/03 Comment: EGD in 2003 shoed esophagitis and gastritis Qualifiers: Esophagitis presence: esophagitis presence not specified Qualified Code(s) : K21.9 - Gastro-esophageal reflux disease without esophagitis Category: Medical (5) Status post total knee replacement Current Visit: Yes Status: Resolved Onset Date: 02/12/05 Comment: left Category: Surgical (6) Postoperative anemia due to acute blood loss Current Visit: Yes Status: Acute Code(s): D62 - Acute posthemorrhagic anemia Category: Medical
[2017-04-06] MEDS: Spironolactone Tab 25 MG TAB PO SCH (08:41)
[2017-04-06] MEDS: ENOXAPARIN SODIUM 30 MG/0.3 ML SYRINGE SUBCUT SCH (08:41)
[2017-04-06] MEDS: Sertraline Tab 50 MG TAB PO SCH (08:41)
[2017-04-06] MEDS: PROPRANOLOL ER 60 MG CAPSULE PO SCH (08:41)
[2017-04-06] MEDS: OMEPRAZOLE 20 MG CAPSULE PO SCH (08:42)
[2017-04-06] MEDS: Potassium Chloride Tab 10 MEQ TAB PO SCH (08:42)
[2017-04-06 08:52] VITALS: BP 125/60; RESP 18; TEMP 97.8; O2SAT 92
[2017-04-06] MEDS: DOCUSATE 100 MG CAPSULE PO SCH (09:33)
== END 2017-04-06 10:06 | disposition swing bed (61) | DRG 470 ==
LOC: OPS 04-02 05:44 → MED/SURG 04-02 12:57
PROVIDERS: ADMIT Orthopaedic Surgery; ATTEND Orthopaedic Surgery